=== PATIENT | female | born 1960 | race African-American/Black ===

== ENCOUNTER 2019-04-24 13:00 | Emergency (ER) | payer MEDICAID ==
--- NOTE | 2019-04-24 14:23 | EDM.PDOC ---
ED HPI GENERAL MEDICAL PROBLEM - General Chief Complaint: Respiratory Problem Stated Complaint: FEVER/COUGH Time Seen by Provider: 04/24/19 14:22 Source of Information: Reports: Patient History Limitations: Reports: No Limitations - History of Present Illness INITIAL COMMENTS - FREE TEXT/NARRATIVE: 58-year-old female presents to the ED with paroxysmal productive cough and persistent fever for over a week. Initial illness started with sore throat on the right side than milk to the left side about 2 days later. Then seem to move up into her sinuses with nasal congestion. No earache. Over the last 3 days she' s had increased productive cough fever and chills particularly at nighttime. Can also hear herself wheezing. She is short of breath on minimal exertion. She has markedly decreased appetite. She's never had a really high fever and no severe headache to suggest influenza. She works at a local longterm in housekeeping. Onset: Gradual Onset Date: 04/17/19 Duration: Day(s): (Started a week ago.), Getting Worse Location: Reports: Chest (Active cough with wheezing.), Other (Diffuse sinus and nasal congestion) Quality: Reports: Other (Facial pressure pain and nasal congestion. Associated with paroxysmal productive cough and wheezing) Severity: Moderate Improves with: Reports: None Worsens with: Reports: Other Context: Denies: Activity (To be worse when she lies down.), Exercise, Lifting, Sick Contact, Trauma, Other Associated Symptoms: Reports: Chest Pain, Cough, cough w sputum, Fever/Chills, Loss of Appetite, Malaise, Shortness of Breath, Weakness. Denies: Diaphoresis ( Central upper chest from coughing so much.), Headaches (Especially at nighttime. ) Treatments B[employer]KE [employer]IC: Reports: Acetaminophen, NSAIDS (Motrin) - Related Data Allergies Allergy/AdvReac Type Severity Reaction Status Date / Time No Known Allergies Allergy Verified 12/27/13 00:29 Home Meds: Home Meds Doxycycline [Vibramycin] 100 mg PO BID #20 cap 04/24/19 [Rx] Loratadine/Pseudoephedrine [Claritin-D 12 Hour] 1 tab PO Q12HR #10 tab.er [Rx] Past Medical History - Past Health History Medical/Surgical History: Denies Medical/Surgical History Social & Family History - Tobacco Use Smoking Status *Q: Current Every Day Smoker Years of Tobacco use: 40 Packs/Tins Daily: 0.2 - Caffeine Use Caffeine Use: Reports: Coffee, Soda, Tea - Recreational Drug Use Recreational Drug Use: No - Living Situation & Occupation Living situation: Reports: Single Occupation: Employed ED ROS GENERAL - Review of Systems Review Of Systems: See Below Constitutional: Reports: Fever, Chills, Malaise, Weakness, Fatigue, Decreased Appetite HEENT: Reports: Sinus Problem, Throat Pain (With initial onset of illness but not now). Denies: Ear Pain Respiratory: Reports: Shortness of Breath, Wheezing, Cough, Sputum. Denies: Hemoptysis Cardiovascular: Reports: Chest Pain Endocrine: Reports: Fatigue GI/Abdominal: Reports: Decreased Appetite : Reports: No Symptoms Musculoskeletal: Reports: No Symptoms Skin: Reports: No Symptoms Neurological: Reports: No Symptoms Psychiatric: Reports: No Symptoms Hematologic/Lymphatic: Reports: No Symptoms Immunologic: Reports: No Symptoms ED EXAM, GENERAL - Physical Exam Exam: See Below Exam Limited By: No Limitations General Appearance: Alert, WD/WN, No Apparent Distress, Other (Textures currently 36.7 and she does not feel warm to palpation. Pulses 82 in sinus respiratory distress 20 with O2 sats of 96% on room air. BP is 125/86.) Eye Exam: Bilateral Eye: Normal Inspection Ears: Normal TMs Nose: Nasal Drainage (Some greenish nasal discharge.) Throat/Mouth: Normal Inspection, Normal Lips, Normal Oropharynx Head: Atraumatic, Normocephalic, Sinus Tenderness (Maxillary and ethmoids.) Neck: Normal Inspection, Supple, Non-Tender, Full Range of Motion. No: Lymphadenopathy (L), Lymphadenopathy (R) Respiratory/Chest: No Respiratory Distress, No Accessory Muscle Use, Chest Non- Tender, Rhonchi (Rhonchi anterior upper chest), Wheezing ( with productive sounding cough. patterned expiratory wheezes particularly on the left ). No: Lungs Clear, Normal Breath Sounds Cardiovascular: Normal Peripheral Pulses, Regular Rate, Rhythm, No Edema, No Gallop, No Murmur Peripheral Pulses: 3+: Posterior Tibial (L), Posterior Tibial (R), Dorsalis Pedis (L), Dorsalis Pedis (R) Extremities: Normal Inspection, Normal Range of Motion, Non-Tender Neurological: Alert, Oriented, CN II-XII Intact, Normal Cognition, Normal Gait Psychiatric: Normal Affect, Normal Mood Skin Exam: Warm, Dry, Intact, Normal Color, No Rash Course - Vital Signs Last Recorded V/S: Last Vital Signs Temp 36.7 C 04/24/19 13:26 Pulse 82 04/24/19 13:26 Resp 20 04/24/19 13:26 BP 125/86 04/24/19 13:26 Pulse Ox 96 04/24/19 13:26 - Orders/Labs/Meds Orders: Active Orders 24 hr Category Date Time Status Chest 2V [CR] Stat Exams 04/24/19 14:28 Taken - Radiology Interpretation Free Text/Narrative:: 58-year-old female presents the ED with an upper respiratory tract infection for the last week. Initially started ON throat and then seem to move up into her sinuses with nasal congestion which remains. She continues to have fevers particular at nighttime with chills. She has now developed a very productive sounding cough over the last 3 days. The history does not suggest influenza. She does have bronchitis with occasional expiratory wheezing. Ears are normal throat is normal at this time she is nasally congested with pain over both maxillary sinuses. When 2 view chest x-ray to be done to rule out pneumonia. - Re-Assessments/Exams Free Text/Narrative Re-Assessment/Exam: 04/24/19 14:49 two-view chest x-ray is within normal limits showing no evidence of pneumonia. Clinically the patient has sinusitis and developing bronchitis. Will be treated with Doxil cycle 100 mg twice daily for 10 days and Claritin-D 12 hour release tablet once daily every morning for the next 5 days. Note given to excuse her from the work place for the next 2 days. Departure - Departure Time of Disposition: 14:54 Disposition: Home, Self-Care 01 Condition: Fair Clinical Impression: Sinusitis, Bronchitis - Discharge Information *PRESCRIPTION DRUG MONITORING PROGRAM REVIEWED*: Not Applicable *COPY OF PRESCRIPTION DRUG MONITORING REPORT IN PATIENT JARROD: Not Applicable Prescriptions: Loratadine/Pseudoephedrine [Claritin-D 12 Hour] 1 tab PO Q12HR #10 tab.er Doxycycline [Vibramycin] 100 mg PO BID #20 cap Referrals: PCP,None [Primary Care Provider] - Forms: ED Department Discharge, ED Return to Work/School Form Additional Instructions: Evaluation the emergency room today in regards to upper respiratory tract infection with persistent fever and cough developing over the last 3 days. Illnesses been present for over a week. Clinically you have sinus infection with postnasal drip which is creating a good deal of your coughing. Some wheezing in the left lung field. Chest x-ray done in the ED does not reveal any signs of pneumonia. Therefore at this time he appeared to have a combination of sinusitis with postnasal drip and bronchitis. Wound is to be antibiotic ducts likely 100 mg twice daily for the next 10 days to clear up infection. To D12 hour release once daily every morning for the next 5 or 6 days to help decongest sinuses and promote further drainage. Off work until April 27. Sepsis Event Note - Evaluation Sepsis Screening Result: No Definite Risk - Focused Exam Vital Signs: Vital Signs Temp Pulse Resp BP Pulse Ox 04/24/19 13:26 36.7 C 82 20 125/86 96 Date Exam was Performed: 04/24/19 Time Exam was Performed: 14:49 - My Orders Last 24 Hours: My Active Orders 04/24/19 14:28 Chest 2V [CR] Stat - Assessment/Plan Last 24 Hours: My Active Orders 04/24/19 14:28 Chest 2V [CR] Stat
--- NOTE | 2019-04-24 15:01 | CR ---
Chest: PA and lateral views of the chest were obtained. Comparison: No prior chest x-ray. Heart size is normal. Tortuous thoracic aorta is seen. Lungs are clear with no acute parenchymal change. Diffuse disc space narrowing is seen within the spine with scattered endplate osteophytes. Impression: 1. Findings as noted above. 2. Nothing acute is appreciated. Diagnostic code #2 This report was dictated in [place] Standard Time
== END 2019-04-24 15:15 | disposition home or self-care (01) ==
LOC: JD.ED 13:00
DX: J40 Bronchitis, not specified as acute or chronic (principal); J32.9 Chronic sinusitis, unspecified; F17.210 Nicotine dependence, cigarettes, uncomplicated
CPT/HCPCS: 71046; 71046-26; 99283; 99283-25

== ENCOUNTER 2024-06-28 07:00 | Day surgery (SDC) | payer OTHER ==
[~2024-06-28 07:00] MED LIST: Lidocaine 1% 4 ML ONE; Midazolam 1 MG/ML 2 ML SDV ONE; Ondansetron 4 MG/2 ML SDV ONE; Propofol 200 MG/20 ML SDV ONE; Rocuronium 50 MG/5 ML Vial ONE; Ropivacaine 0.5% 5 MG/ML 30 ML SDV ONE; Sodium Chloride 0.9% 10 ML Syringe FLUSH PRN; ceFAZolin 2 GM Vial ONE; dexmedeTOMIDine HCl 200 MCG/2 ML SDV ONE; fentaNYL 100 MCG/2 ML SDV ONE
[2024-06-28] MEDS: Lactated Ringers 1,000 ML IV SCH (07:15)
[2024-06-28 07:24] LABS: BASOPHILS PERCENT AUTO 0.7 % (0.0-1.0); EOSINOPHILS ABSOLUTE AUTO 0.1 K/mm3 (0.0-0.4); EOSINOPHILS PERCENT AUTO 1.1 % (0.0-6.0); HEMATOCRIT 42.3 % (37.0-47.0); HEMOGLOBIN 13.1 gm/dl (12.0-16.0); IMMATURE GRAN ABSOLUTE AUTO 0.02 K/mm3 (0.00-0.05); IMMATURE GRAN PERCENT AUTO 0.4 % (0.0-0.4); LYMPHOCYTES ABSOLUTE AUTO 1.4 K/mm3 (1.0-4.8); LYMPHOCYTES PERCENT AUTO 26.8 % (24.0-44.0); MEAN CORPUSCULAR HEMOGLOBIN 26.4 pg (28.0-32.0); MEAN CORPUSCULAR VOLUME 85.3 fl (83.0-99.0); MEAN PLATELET VOLUME 8.9 fl (9.4-12.3); MONOCYTES ABSOLUTE AUTO 0.4 K/mm3 (0.0-0.8); NEUTROPHILS ABSOLUTE AUTO 3.4 K/mm3 (1.8-7.7); PLATELET COUNT,PLT 354 K/mm3 (150-400); RED BLOOD CELL COUNT 4.96 M/mm3 (4.10-5.30); WHITE BLOOD CELL COUNT,WBC 5.38 K/mm3 (3.9-11.3)
[2024-06-28] MEDS: Pregabalin 25 MG Cap PO ONE (07:26)
[2024-06-28] MEDS: oxyCODONE ER 10 MG TAB.ER PO ONE (07:26)
[2024-06-28] MEDS: Acetaminophen 325 MG Tab PO ONE (07:26)
[2024-06-28 07:40] LABS: INR 0.95; PROTHROMBIN TIME 10.1 SECONDS (9.7-12.0)
[2024-06-28 07:42] LABS: PTT,PARTIAL THROMBOPLSTIN TIME 27.1 SECONDS (21.7-31.4)
[2024-06-28] MEDS ORDERED: Dexamethasone 4 MG/ML 5 ML MDV ONE (08:24)
[2024-06-28] MEDS ORDERED: Phenylephrine 1% 10 MG/ML SDV ONE (08:35)
[2024-06-28] MEDS ORDERED: Lactated Ringers 1,000 ML ONE (08:44)
[2024-06-28] MEDS ORDERED: Sugammadex Sodium 200 MG/2 ML VIAL IV ONE (09:17)
[2024-06-28] MEDS: VANCOmycin 1 GM SDV ONE (09:24)
[2024-06-28] MEDS: Tranexamic Acid 1,000 MG/10 ML Vial ONE (09:24)
[2024-06-28] MEDS ORDERED: Propofol 200 MG/20 ML SDV ONE (09:27)
[2024-06-28] MEDS ORDERED: fentaNYL 100 MCG/2 ML SDV IVPUSH PRN (09:56)
[2024-06-28] MEDS: HYDROmorphone 0.5 MG/0.5 ML Syringe IVPUSH PRN (10:05)
[2024-06-28] MEDS: Ondansetron 4 MG/2 ML SDV IVPUSH PRN (10:09)
[2024-06-28] MEDS: oxyCODONE 5 MG Tab PO PRN (11:15)
[2024-06-28] MEDS: Acetaminophen 325 MG Tab PO PRN (18:43)
[2024-06-28] MEDS: Sodium Chloride 0.9% 10 ML Syringe FLUSH SCH (19:30)
[2024-06-29] MEDS: oxyCODONE 5 MG Tab PO PRN (08:25)
== END 2024-06-29 10:58 | disposition home or self-care (01) ==
LOC: JD.SDS 07:00 → JD.MS 12:00 → UNDOADMIN 18:47 → JD.SDS 06-29 10:58
PROVIDERS: ATTEND Orthopaedic Surgery
DX: M19.011 Primary osteoarthritis, right shoulder (principal); E78.2 Mixed hyperlipidemia; F32.A Depression, unspecified; E66.01 Morbid (severe) obesity due to excess calories; Z68.41 Body mass index [BMI] 40.0-44.9, adult
CPT/HCPCS: 23472; 36415; 64415; 76000; 85025; 85610; 85730; 94760; 97116; 97161; 97530; A9270; C1713; C1769; C1776; J0690; J1100; J2003; J2250; J2371; J2405; J2704; J2795; J3010; J7120; 01638; J3490